=== PATIENT | female | born 1975 | race Caucasian/White ===

== ENCOUNTER 2021-05-19 15:29 | Emergency (ER) | payer MEDICAID, SELFPAY ==
[2021-05-19 15:37] VITALS: BP 174/89; PULSE 75; RESP 18; TEMP 36.6; O2SAT 100; BMI 36.1
--- NOTE | 2021-05-19 16:12 | XRR_ITS ---
PROCEDURE INFORMATION: Exam: XR Chest Exam date and time: 05/19/2021 4:12 PM Age: 46 years old Clinical indication: Angina pectoris; Patient HX: Chest pain starting last night TECHNIQUE: Imaging protocol: XR of the chest. Views: 1 view. COMPARISON: No relevant prior studies available. FINDINGS: Lungs: Unremarkable. No consolidation. Pleural spaces: Unremarkable. No pleural effusion. No pneumothorax. Heart/Mediastinum: Unremarkable. No cardiomegaly. Bones/joints: Unremarkable. XR/XR chest 1V portable [id number] IMPRESSION: No acute findings.
--- NOTE | 2021-05-19 16:12 | ECG_ITS ---
[facility] Test Date: 2021-05-19 Pat Name: Viri Yousif Department: Room: Gender: Female Vacation Planner: : 1975 Requested By: Collette Gomez Order Number: [id number] John MD: Torey Gatica M.D. Measurements Intervals [place] Rate: 77 P: 46 SD: 171 QRS: 62 QRSD: 93 T: 46 QT: 378 QTc: 429 Interpretive Statements SINUS RHYTHM POSSIBLE ANTERIOR MYOCARDIAL INFARCTION , OF INDETERMINATE AGE [30 ms Q WAVE IN V3/V4, OR R < 0.2 mV IN V4] No previous ECG available for comparison Electronically Signed On 05-19-2021 18:06:34 SURFACE ROOM [employer]ICIAN by Torey Gatica M.D. [id number]
== END 2021-05-19 17:09 | disposition left against medical advice (07) ==
PROVIDERS: Emergency Provider Family Medicine
DX: Z53.21 Procedure and treatment not carried out due to patient leaving prior to being seen by health care provider (principal)
CPT/HCPCS: 71045; 93005

== ENCOUNTER 2023-08-17 19:25 | Emergency (ER) | payer MEDICAID, SELFPAY ==
[2023-08-17] VITALS (8 sets, daily range): BP systolic 149–169; BP diastolic 77–102; PULSE 71–93; RESP 14–25; TEMP 36.7; O2SAT 94–100; BMI 41.0
--- NOTE | 2023-08-17 19:39 | XRR_ITS ---
PROCEDURE INFORMATION: Exam: XR Chest Exam date and time: 08/17/2023 7:57 PM Age: 48 years old Clinical indication: Cough and dyspnea; Additional info: Dyspnea/cough TECHNIQUE: Imaging protocol: Radiologic exam of the chest. Views: 1 view. COMPARISON: CR XR chest 1V portable [id number] 05/19/2021 4:18 PM FINDINGS: Lungs: Incidental note made of azygous lobe. The lungs are clear. No pulmonary consolidation. Pleural spaces: No pleural effusion or pneumothorax. Heart/Mediastinum: Heart size is within normal limits. Stable hyperdensity projecting over the right mid heart may represent a septal occlusion device, stable. Bones/joints: No acute osseous abnormalities are seen. XR/XR chest 1V portable [id number] IMPRESSION: No acute cardiopulmonary disease.
--- NOTE | 2023-08-17 19:56 | ECG_ITS ---
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 Measurements Intervals [place] Rate: 79 P: 24 [place]: 166 QRS: 53 QRSD: 82 T: 55 QT: 367 QTc: 421 Interpretive Statements SINUS RHYTHM Compared to ECG 05/19/2021 15:47:19 Myocardial infarct finding no longer present Electronically Signed On 08-18-2023 16:25:46 CDT by Torey Gatica M.D. [id number]
--- NOTE | 2023-08-17 19:58 | ED_ITS ---
HPI - General Adult 2 General: Chief complaint: General Medical Stated complaint: High BP, Feet swelling,SOB Time Seen by Provider: 08/17/23 19:38 Source: patient Mode of arrival: ambulatory History of Present Illness: 48-year-old female comes in complaining of swelling in her feet and some shortness of breath this been going on for some time they have made some medication adjustments recently. Blood pressure despite this is continue to run a little bit high she has several blood pressure readings from at home 160s even some in the 170s. Prior to adding the metoprolol she had some blood pressures in the 190s. She denies any chest pain at this time states she had some twinges of chest discomfort earlier. She has some EKGs from her doctor's office and a that showed early repull in V12 and 3. EKG done in the ER at this time has no significant acute changes no ST elevation. No PND but does feel shortness of breath with exertion no associated chest pain with exertion. Onset (ago): day(s) Associated symptoms: Reports dyspnea, malaise and short of breath; Deny chest pain, confusion, cough, diaphoresis, decreased appetite, fevers/chills, headache(s), nausea, rash, palpitations, seizures, syncope, vomiting or weakness Review of Systems 2 Const: Reports: malaise; Denies: fever(s), chills or diaphoresis Card: Reports: edema and swelling of feet/ankles; Denies: chest pain, palpitations or syncope Resp: Reports: dyspnea; Denies: productive cough, non-productive cough, wheezing or chest congestion GI: Denies: abdominal pain, nausea or vomiting : Denies: dysuria, urinary frequency or urinary urgency Musc: Denies: neck pain or back pain Skin/Breast: Denies: rash Neuro: Denies: headache(s) or confusion [facility] ED 2 Female Reproductive History: Date of last menstrual period: 08/13/23 Physical Exam 2 Const: GENERAL APPEARANCE: cooperative and comfortable O RIENTATION/CONSCIOUSNESS: Yes awake, Yes oriented to person, Yes oriented to place and Yes oriented to time HENMT: COMMON NORMALS: normocephalic, atraumatic and hearing grossly normal bilaterally HEAD & SCALP: normocephalic and atraumatic Resp: COMMON NORMALS: normal respiratory effort, No retractions, No use of accessory muscles and clear to auscultation bilaterally AUSCULTATION: clear to auscultation bilaterally Cardio: COMMON NORMALS: regular rate, regular rhythm and No murmurs present (Cardio) RATE: regular rate RHYTHM: regular rhythm GI: COMMON NORMALS: Soft to palpation and No hepatosplenomegaly present A USCULTATION: Yes normoactive bowel sounds PALPATION: Yes Soft to palpation, No Tenderness to palpation present (GI), No Guarding due to palpation present (GI) and Yes No hepatosplenomegaly present Extremity: COMMON NORMALS: normal to inspection, capillary refill normal and no calf tenderness GENERAL: Yes edema (Trace lower extremity) Neuro: SENSORIUM/ORIENTATION: Yes oriented to person, Yes oriented to place and Yes oriented to time Skin: COMMON NORMALS: no rashes or lesions noted GENERAL SKIN EXAM: no rashes or lesions noted Course 2 Vital Signs: Vital signs: Vital Signs Temperature 98.0 F 08/17/23 19:38 Pulse Rate 75 08/17/23 21:00 Respiratory Rate 17 08/17/23 21:00 Blood Pressure 164/88 08/17/23 21:00 Pulse Oximetry 99 08/17/23 21:00 Oxygen Delivery Me thod Room Air 08/17/23 19:38 MDM - General Adult Medical Decision Making And imaging reviewed no acute coronary syndrome. EKGs done at the office show it looks like repull did not show any acute coronary changes at this time no ST segment elevation cardiac enzymes trending normal at 6. Blood pressure is elevated but not significantly so. Recommend adding hydrochlorothiazide 25 mg daily and follow-up with her primary care doctor within 7 to 10 days to reevaluate blood pressure control. Medical Records I reviewed the patient's medical records. Lab Data I reviewed the patient's lab results. 08/17/23 19:53 08/17/23 19:53 Radiology Impressions Chest X-Ray 08/17/23 19:39 IMPRESSION: No acute cardiopulmonary disease. Laboratory Results WBC 5.92 10^3/uL (3.29-11.43) 08/17/23 19:53 RBC 4.71 10^6/uL (3.85-5.65) 08/17/23 19:53 Hgb 13.00 g/dL (11.27-16.99) 08/17/23 19:53 Hct 40.2 % (36-47) 08/17/23 19:53 MCV 85.4 fl (85-98) 08/17/23 19:53 MCH 27.6 pg (27-33) 08/17/23 19:53 MCHC 32.3 g/dL (30-55) 08/17/23 19:53 RDW 14.4 % (12.1-15.1) 08/17/23 19:53 Plt Count 176 10^3/cmm (157-399) 08/17/23 19:53 MPV 11.4 fL (7.4-10.4) H 08/17/23 19:53 Neut % (Auto) 59.3 % 08/17/23 19:53 Lymph % (Auto) 27.5 % 08/17/23 19:53 [place] % (Auto) 7.1 % 08/17/23 19:53 Eos % (Auto) 5.2 % 08/17/23 19:53 Baso % (Auto) 0.7 % 08/17/23 19:53 Neut # (Auto) 3.51 10^3/uL (1.8-7.7) 08/17/23 19:53 Lymph # (Auto) 1.6 10^3/uL (0.8-4.8) 08/17/23 19:53 [place] # (Auto) 0.4 10^3/uL (0.2-0.9) 08/17/23 19:53 Eos # (Auto) 0.3 10^3/uL (0.0-0.8) 08/17/23 19:53 Baso # (Auto) 0.0 10^3/uL (0.0-0.1) 08/17/23 19:53 Nucleated RBC % (auto) 0 % 08/17/23 19:53 Nucleated RBCs # 0.0 /100WBC 08/17/23 19:53 Sodium 141 mmol/L (136-145) 08/17/23 19:53 Potassium 4.1 mmol/L (3.5-5.1) 08/17/23 19:53 Chloride 109 mmol/L (98-107) H 08/17/23 19:53 Carbon Dioxide 23 mmol/L (22-29) 08/17/23 19:53 Anion Gap 13.1 (5-19) 08/17/23 19:53 BUN 8 mg/dL (6-20) 08/17/23 19:53 Creatinine 0.7 mg/dL (0.5-0.9) 08/17/23 19:53 GFR Calculation 89.7 mL/min (90-130) L 08/17/23 19:53 Glucose 94 mg/dL (65-115) 08/17/23 19:53 Calculated Osmolality 290 mOsm/kg (285-295) 08/17/23 19:53 Calcium 8.3 mg/dL (8.5-10.5) L 08/17/23 19:53 Total Bilirubin 0.3 mg/dL (0.15-1.2) 08/17/23 19:53 AST 17 U/L (0-32) 08/17/23 19:53 ALT 12 U/L (0-33) 08/17/23 19:53 Alkaline Phosphatase 65 U/L (35-105) 08/17/23 19:53 Troponin T Baseline < 6 ng/L (0-10) 08/17/23 19:53 Troponin T 120 Minute 6.00 ng/L (0-10) 08/17/23 21:57 Delta Troponin T 0.24007 ABS# (0-10) 08/17/23 21:57 Total Protein 7.1 g/dL (6.6-8.7) 08/17/23 19:53 Albumin 4.2 g/dL (3.5-5.2) 08/17/23 19:53 Globulin 2.9 g/dL (1.3-4.6) 08/17/23 19:53 All radiology interpretation(s) finalized by discharge Discharge Plan Discharge Patient Disposition: Home Clinical Impression: HTN (hypertension) Condition: Stable Prescriptions: New hydrochlorothiazide 25 mg tablet 25 mg PO DAILY Qty: 30 0RF Discharge Orders: Discharge ED (Routine); Ordered 08/17/23 Ordered By: Mejia Jc Referrals: Gumaro Russo MD [Primary Care Provider] - Discharge Diet: Usual diet Discharge Activity: Increase activity as tolerated Patient Instructions: Hypertension (ED), Opioid Safety, Pain Management Activity Restrictions/Additional Instructions: Thank you for choosing [facility] for your healthcare needs today. Please realize this is an emergency room and that we are providing you with a medical screening exam and this may not be complete and all inclusive of all the testing and or work up that you may need to determine your ailment or severity of your illness. It is very important that you follow up as instructed or that you return to the Emergency Department should you have concerns or if your condition changes or worsens in any way. You are seen today for elevated blood pressure. Recommend that you add hydrochlorothiazide 1 tablet daily to your blood pressure regimen and recheck your blood pressure with your primary care doctor within the next week. Your EKGs and cardiac enzymes did not show any sign of acute coronary syndrome at this time. Coding Level of Care Code ED Dish Carrier for Stephanie Salinas
[2023-08-17 20:31] LABS: Basophils % 0.7 %; Eosinophils # 0.3 10^3/uL (0.0-0.8); Eosinophils % 5.2 %; Hematocrit 40.2 % (36-47); Lymphocytes # 1.6 10^3/uL (0.8-4.8); Lymphocytes % 27.5 %; Mean Corpuscular HGB Conc 32.3 g/dL (30-55); Mean Corpuscular Hemoglobin 27.6 pg (27-33); Mean Corpuscular Volume 85.4 fl (85-98); Mean Platelet Volume 11.4 fL (7.4-10.4); Monocytes # 0.4 10^3/uL (0.2-0.9); Monocytes % 7.1 %; Neutrophils # 3.51 10^3/uL (1.8-7.7); Neutrophils % 59.3 %; Nucleated Red Blood Cells % 0 %; Platelet Count 176 10^3/cmm (157-399); Red Blood Count 4.71 10^6/uL (3.85-5.65); Red Cell Distribution Width 14.4 % (12.1-15.1); White Blood Count 5.92 10^3/uL (3.29-11.43)
[2023-08-17 20:47] LABS: Alanine Aminotransferase 12 U/L (0-33); Albumin Level 4.2 g/dL (3.5-5.2); Alkaline Phosphatase 65 U/L (35-105); Aspartate Amino Transferase 17 U/L (0-32); Blood Urea Nitrogen 8 mg/dL (6-20); Calcium 8.3 mg/dL (8.5-10.5); Carbon Dioxide 23 mmol/L (22-29); Chloride 109 mmol/L (98-107); Creatinine Clr Calc Pharmacy 136.9698; Globulin 2.9 g/dL (1.3-4.6); Glomerular Filtration Rate 89.7 mL/min (90-130); Glucose 94 mg/dL (65-115); Osmolality Calculated 290 mOsm/kg (285-295); Sodium 141 mmol/L (136-145); Total Bilirubin 0.3 mg/dL (0.15-1.2); Total Protein 7.1 g/dL (6.6-8.7)
[2023-08-17 20:52] LABS: Anion Gap 13.1 (5-19); Potassium 4.1 mmol/L (3.5-5.1)
[2023-08-17 21:40] LABS: Troponin(5th) Baseline < 6 ng/L (0-10)
--- NOTE | 2023-08-17 21:52 | ECG_ITS ---
[facility] Test Date: 2023-08-17 Pat Name: Viri Yousif Department: Room: Gender: Female Cash Applications Associate: : 1975 Requested By: Mejia cMkeon Order Number: [id number] John MD: Torey Gatica M.D. Measurements Intervals [place] Rate: 76 P: 32 NE: 182 QRS: 30 QRSD: 96 T: 44 QT: 390 QTc: 439 Interpretive Statements SINUS RHYTHM WITH SINUS ARRHYTHMIA Compared to ECG 08/17/2023 19:56:11 No significant changes Electronically Signed On 08-18-2023 16:25:18 CDT by Torey Gatica M.D. [id number]
[2023-08-17 22:21] LABS: Troponin 5 2HR Delta 0.00001 ABS# (0-10)
== END 2023-08-17 22:55 | disposition home or self-care (01) ==
PROVIDERS: Emergency Provider Family Medicine; PCP Family Medicine
DX: I10 Essential (primary) hypertension (principal)
CPT/HCPCS: 36415; 71045; 80053; 84484; 85025; 93005; 99285

== ENCOUNTER 2024-01-02 23:37 | Emergency (ER) | payer MEDICAID, SELFPAY ==
[2024-01-02 23:49] VITALS: BP 183/111; PULSE 75; RESP 18; TEMP 36.4; O2SAT 99; BMI 41.9
--- NOTE | 2024-01-02 23:58 | ED_ITS ---
Documented by User: PABLO Sim 01/06/24 13:40 HPI - General Adult 2 General: Chief complaint: Vaginal Bleeding Stated complaint: currently treated anemia, v/ heavy bleeding dizzy Time Seen by Provider: 01/02/24 23:51 History of Present Illness: 48-year-old female comes in today for co mplaints of lightheadedness and dizziness secondary to heavy vaginal bleeding. Patient reports that she has recently started treatment for anemia because her hemoglobin was 11.3. Patient does have a history of gastric sleeve surgery, which makes her malnourished already. Patient was placed on some iron and vitamin C to help with the anemia recently. Patient reports she started her period 3 days ago but has been heavier than she usually has noted and is concerned that it may be causing her to become more anemic and causing more lightheadedness and dizziness. Patient's other medical history includes migraine headaches, hypertension, prior CVA. Patient's had a appendectomy, gallbladder removal, tubal ligation, , and gastric sleeve. Patient appears nontoxic. Patient appears in mild to moderate pain due to headache. 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 Associated symptoms: Reports headache(s) Related Data Previous Rx's Medication Instructions Recorded hydrochlorothiazide 25 mg tablet 25 mg PO DAILY #30 tabs 08/17/23 Allergies Allergy/AdvReac Type Severity Reaction Status Date / Time diazepam [From Valium] Allergy Unknown Verified 08/17/23 19:47 Review of Systems 2 General: Reports: 10 or more systems reviewed and unremarkable except in HPI and below : Reports: vaginal bleeding Neuro: Reports: headache(s) and dizziness [facility] ED 2 Female Reproductive History: Date of last menstrual period: 12/30/23 Physical Exam 2 Const: COMMON NORMALS: alert HENMT: COMMON NORMALS: normocephalic HEAD & SCALP: normocephalic Neck/C-Spine: COMMON NORMALS: full ROM Resp: COMMON NORMALS: normal respiratory effort and clear to auscultation bilaterally AUSCULTATION: clear to auscultation bilaterally Cardio: COMMON NORMALS: regular rate RATE: regular rate GI: COMMON NORMALS: Soft to palpation PALPATION: Yes Soft to palpation Extremity: COMMON NORMALS: normal to inspection Neuro: SENSORIUM/ORIENTATION: Yes alert Skin: COMMON NORMALS: turgor normal GENERAL SKIN EXAM: turgor normal Course 2 Vital Signs: Vital signs: Vital Signs Temperature 97.6 F 01/02/24 23:49 Pulse Rate 74 01/03/24 02:43 Respiratory Rate 16 01/03/24 02:41 Blood Pressure 135/70 01/03/24 02:43 Pulse Oximetry 100 01/03/24 02:43 Oxygen Delivery Me thod Room Air 01/03/24 02:41 MDM - General Adult Medical Decision Making 48-year-old female comes in today for complaints of lightheadedness and dizziness. Patient also has a headache. Patient reports some heavier than normal bleeding secondary to her menstrual cycle. Patient believes that they are heavy menstrual cycle has made her anemia worse which prompted her to come to the ER. Patient appears nontoxic. No focal neurodeficits are noted. Skin is warm and dry. Vital signs normal except for blood pressure of 183/111. Differential diagnosis includes not limited to abnormal uterine bleeding, anemia, migraine headache, dehydration. 1220, patient's hemoglobin came back 12.7. Patient was ordered Reglan, diphenhydramine, and hydralazine for a headache and high blood pressure. We are awaiting CMP, and urinalysis, and hCG. I reviewed patient with Dr. Maya who will assume care of patient at the end of my shift. Lab Data 01/02/24 23:58 01/02/24 23:58 Laboratory Results WBC 6.77 10^3/uL (3.29-11.43) 01/02/24 23:58 RBC 4.61 10^6/uL (3.85-5.65) 01/02/24 23:58 Hgb 12.70 g/dL (11.27-16.99) 01/02/24 23:58 Hct 39.3 % (36-47) 01/02/24 23:58 MCV 85.2 fl (85-98) 01/02/24 23:58 MCH 27.5 pg (27-33) 01/02/24 23:58 MCHC 32.3 g/dL (30-55) 01/02/24 23:58 RDW 15.7 % (12.1-15.1) H 01/02/24 23:58 Plt Count 214 10^3/cmm (157-399) 01/02/24 23:58 MPV 10.4 fL (7.4-10.4) 01/02/24 23:58 Neut % (Auto) 58.0 % 01/02/24 23:58 Lymph % (Auto) 28.1 % 01/02/24 23:58 [place] % (Auto) 7.4 % 01/02/24 23:58 Eos % (Auto) 5.5 % 01/02/24 23:58 Baso % (Auto) 0.7 % 01/02/24 23:58 Neut # (Auto) 3.93 10^3/uL (1.8-7.7) 01/02/24 23:58 Lymph # (Auto) 1.9 10^3/uL (0.8-4.8) 01/02/24 23:58 [place] # (Auto) 0.5 10^3/uL (0.2-0.9) 01/02/24 23:58 Eos # (Auto) 0.4 10^3/uL (0.0-0.8) 01/02/24 23:58 Baso # (Auto) 0.1 10^3/uL (0.0-0.1) 01/02/24 23:58 Nucleated RBC % (auto) 0 % 01/02/24 23:58 Nucleated RBCs # 0.0 /100WBC 01/02/24 23:58 Sodium 136 mmol/L (136-145) 01/02/24 23:58 Potassium 3.9 mmol/L (3.5-5.1) 01/02/24 23:58 Chloride 108 mmol/L (98-107) H 01/02/24 23:58 Carbon Dioxide 20 mmol/L (22-29) L 01/02/24 23:58 Anion Gap 11.9 (5-19) 01/02/24 23:58 BUN 14 mg/dL (6-20) 01/02/24 23:58 Creatinine 0.7 mg/dL (0.5-0.9) 01/02/24 23:58 GFR Calculation 89.7 mL/min (90-130) L 01/02/24 23:58 Glucose 113 mg/dL (65-115) 01/02/24 23:58 Calculated Osmolality 283 mOsm/kg (285-295) L 01/02/24 23:58 Calcium 8.6 mg/dL (8.5-10.5) 01/02/24 23:58 Total Bilirubin 0.2 mg/dL (0.15-1.2) 01/02/24 23:58 AST 20 U/L (0-32) 01/02/24 23:58 ALT 17 U/L (0-33) 01/02/24 23:58 Alkaline Phosphatase 77 U/L (35-105) 01/02/24 23:58 Total Protein 7.0 g/dL (6.6-8.7) 01/02/24 23:58 Albumin 4.1 g/dL (3.5-5.2) 01/02/24 23:58 Globulin 2.9 g/dL (1.3-4.6) 01/02/24 23:58 HCG, Qual Negative (Negative) 01/02/24 23:58 Urine Color Yellow (Yellow) 01/03/24 00:30 Urine Appearance Clear (CLEAR) 01/03/24 00:30 Urine pH 6.0 (5-7) 01/03/24 00:30 Ur Specific [place] 1.020 (1.005-1.030) 01/03/24 00:30 Urine Protein Negative (Negative) 01/03/24 00:30 Urine Glucose (UA) Negative (Normal) 01/03/24 00:30 Urine Ketones Negative (Negative) 01/03/24 00:30 Urine Blood 3+ (Negative) A 01/03/24 00:30 Urine Nitrate Negative (Negative) 01/03/24 00:30 Urine Bilirubin Negative (Negative) 01/03/24 00:30 Urine Urobilinogen 1.0 mg/dL (Negative) 01/03/24 00:30 Ur Leukocyte Esterase Negative (Negative) 01/03/24 00:30 Urine RBC 3-5 /hpf (0-2) 01/03/24 00:30 Urine WBC 0-5 /hpf (0-5) 01/03/24 00:30 Ur Squamous Epith Cells 0-5 /hpf (0-5) 01/03/24 00:30 Calcium Oxalate Crystal 5-10 /hpf H 01/03/24 00:30 Amorphous Sediment Not Reportable 01/03/24 00:30 Urine Bacteria None seen /hpf (NONE) 01/03/24 00:30 Hyaline Casts 0-4 /lpf H 01/03/24 00:30 Urine Mucus Trace /hpf 01/03/24 00:30 Discharge Plan Discharge Patient Disposition: Home Clinical Impression: Dysfunctional uterine bleeding Headache Qualifiers: Headache type: unspecified Headache chronicity pattern: acute headache I ntractability: not intractable Qualified Code(s): R51.9 - Headache, unspecified Hypertension Qualifiers: Hypertension type: unspecified Qualified Code(s): I10 - Essential (primary) hypertension Condition: Stable Prescriptions: No Action hydrochlorothiazide 25 mg tablet 25 mg PO DAILY Qty: 30 0RF Discharge Orders: Discharge ED (Routine); Ordered 01/03/24 Ordered By: Deshawn Maya Referrals: Gumaro Russo MD [Primary Care Provider] - Discharge Diet: Usual diet Discharge Activity: Increase activity as tolerated Patient Instructions: Abnormal (Dysfunctional) Uterine Bleeding (ED) Activity Restrictions/Additional Instructions: Follow-up with primary care or [facility] in 2 to 3 days for recheck of hemoglobin. Continue with routine medications as directed. Return to ER for worsening symptoms such as feeling of passing out, fever greater than 100.5, inability to hold fluids down. Coding Level of Care Code ED Tool Storage Attendant for Chg Fwd Documented by User: Deshawn Maya DO 01/03/24 05:58 HPI - General Adult 2 General: Chief complaint: Vaginal Bleeding Stated complaint: currently treated anemia, v/ heavy bleeding dizzy Time Seen by Provider: 01/02/24 23:51 Related Data Previous Rx's Medication Instructions Recorded hydrochlorothiazide 25 mg tablet 25 mg PO DAILY #30 tabs 08/17/23 Allergies Allergy/AdvReac Type Severity Reaction Status Date / Time diazepam [From Valium] Allergy Unknown Verified 08/17/23 19:47 Course 2 Vital Signs: Vital signs: Vital Signs Temperature 97.6 F 01/02/24 23:49 Pulse Rate 74 01/03/24 02:43 Respiratory Rate 16 01/03/24 02:41 Blood Pressure 135/70 01/03/24 02:43 Pulse Oximetry 100 01/03/24 02:43 Oxygen Delivery Me thod Room Air 01/03/24 02:41 MDM - General Adult Medical Decision Making 48-year-old female comes in today for complaints of lightheadedness and dizziness. Patient also has a headache. Patient reports some heavier than normal bleeding secondary to her menstrual cycle. Patient believes that they are heavy menstrual cycle has made her anemia worse which prompted her to come to the ER. Patient appears nontoxic. No focal neurodeficits are noted. Skin is warm and dry. Vital signs normal except for blood pressure of 183/111. Differential diagnosis includes not limited to abnormal uterine bleeding, anemia, migraine headache, dehydration. 1220, patient's hemoglobin came back 12.7. Patient was ordered Reglan, diphenhydramine, and hydralazine for a headache and high blood pressure. We are awaiting CMP, and urinalysis, and hCG. I reviewed patient with Dr. Maya who will assume care of patient at the end of my shift. This patient was originally seen by PABLO Dimas.? I agree with his history, evaluation, and treatment. Headache is improved. She wishes to go home. She will be allowed discharged/ Lab Data 01/02/24 23:58 01/02/24 23:58 Laboratory Results WBC 6.77 10^3/uL (3.29-11.43) 01/02/24 23:58 RBC 4.61 10^6/uL (3.85-5.65) 01/02/24 23:58 Hgb 12.70 g/dL (11.27-16.99) 01/02/24 23:58 Hct 39.3 % (36-47) 01/02/24 23:58 MCV 85.2 fl (85-98) 01/02/24 23:58 MCH 27.5 pg (27-33) 01/02/24 23:58 MCHC 32.3 g/dL (30-55) 01/02/24 23:58 RDW 15.7 % (12.1-15.1) H 01/02/24 23:58 Plt Count 214 10^3/cmm (157-399) 01/02/24 23:58 MPV 10.4 fL (7.4-10.4) 01/02/24 23:58 Neut % (Auto) 58.0 % 01/02/24 23:58 Lymph % (Auto) 28.1 % 01/02/24 23:58 [place] % (Auto) 7.4 % 01/02/24 23:58 Eos % (Auto) 5.5 % 01/02/24 23:58 Baso % (Auto) 0.7 % 01/02/24 23:58 Neut # (Auto) 3.93 10^3/uL (1.8-7.7) 01/02/24 23:58 Lymph # (Auto) 1.9 10^3/uL (0.8-4.8) 01/02/24 23:58 [place] # (Auto) 0.5 10^3/uL (0.2-0.9) 01/02/24 23:58 Eos # (Auto) 0.4 10^3/uL (0.0-0.8) 01/02/24 23:58 Baso # (Auto) 0.1 10^3/uL (0.0-0.1) 01/02/24 23:58 Nucleated RBC % (auto) 0 % 01/02/24 23:58 Nucleated RBCs # 0.0 /100WBC 01/02/24 23:58 Sodium 136 mmol/L (136-145) 01/02/24 23:58 Potassium 3.9 mmol/L (3.5-5.1) 01/02/24 23:58 Chloride 108 mmol/L (98-107) H 01/02/24 23:58 Carbon Dioxide 20 mmol/L (22-29) L 01/02/24 23:58 Anion Gap 11.9 (5-19) 01/02/24 23:58 BUN 14 mg/dL (6-20) 01/02/24 23:58 Creatinine 0.7 mg/dL (0.5-0.9) 01/02/24 23:58 GFR Calculation 89.7 mL/min (90-130) L 01/02/24 23:58 Glucose 113 mg/dL (65-115) 01/02/24 23:58 Calculated Osmolality 283 mOsm/kg (285-295) L 01/02/24 23:58 Calcium 8.6 mg/dL (8.5-10.5) 01/02/24 23:58 Total Bilirubin 0.2 mg/dL (0.15-1.2) 01/02/24 23:58 AST 20 U/L (0-32) 01/02/24 23:58 ALT 17 U/L (0-33) 01/02/24 23:58 Alkaline Phosphatase 77 U/L (35-105) 01/02/24 23:58 Total Protein 7.0 g/dL (6.6-8.7) 01/02/24 23:58 Albumin 4.1 g/dL (3.5-5.2) 01/02/24 23:58 Globulin 2.9 g/dL (1.3-4.6) 01/02/24 23:58 HCG, Qual Negative (Negative) 01/02/24 23:58 Urine Color Yellow (Yellow) 01/03/24 00:30 Urine Appearance Clear (CLEAR) 01/03/24 00:30 Urine pH 6.0 (5-7) 01/03/24 00:30 Ur Specific [place] 1.020 (1.005-1.030) 01/03/24 00:30 Urine Protein Negative (Negative) 01/03/24 00:30 Urine Glucose (UA) Negative (Normal) 01/03/24 00:30 Urine Ketones Negative (Negative) 01/03/24 00:30 Urine Blood 3+ (Negative) A 01/03/24 00:30 Urine Nitrate Negative (Negative) 01/03/24 00:30 Urine Bilirubin Negative (Negative) 01/03/24 00:30 Urine Urobilinogen 1.0 mg/dL (Negative) 01/03/24 00:30 Ur Leukocyte Esterase Negative (Negative) 01/03/24 00:30 Urine RBC 3-5 /hpf (0-2) 01/03/24 00:30 Urine WBC 0-5 /hpf (0-5) 01/03/24 00:30 Ur Squamous Epith Cells 0-5 /hpf (0-5) 01/03/24 00:30 Calcium Oxalate Crystal 5-10 /hpf H 01/03/24 00:30 Amorphous Sediment Not Reportable 01/03/24 00:30 Urine Bacteria None seen /hpf (NONE) 01/03/24 00:30 Hyaline Casts 0-4 /lpf H 01/03/24 00:30 Urine Mucus Trace /hpf 01/03/24 00:30 All radiology interpretation(s) finalized by discharge Discharge Plan Discharge Patient Disposition: Home Clinical Impression: Dysfunctional uterine bleeding Headache Qualifiers: Headache type: unspecified Headache chronicity pattern: acute headache I ntractability: not intractable Qualified Code(s): R51.9 - Headache, unspecified Hypertension Qualifiers: Hypertension type: unspecified Qualified Code(s): I10 - Essential (primary) hypertension Condition: Stable Prescriptions: No Action hydrochlorothiazide 25 mg tablet 25 mg PO DAILY Qty: 30 0RF Discharge Orders: Discharge ED (Routine); Ordered 01/03/24 Ordered By: Deshawn Maya Referrals: Gumaro Russo MD [Primary Care Provider] - Discharge Diet: Usual diet Discharge Activity: Increase activity as tolerated Patient Instructions: Abnormal (Dysfunctional) Uterine Bleeding (ED) Activity Restrictions/Additional Instructions: Follow-up with primary care or [facility] in 2 to 3 days for recheck of hemoglobin. Continue with routine medications as directed. Return to ER for worsening symptoms such as feeling of passing out, fever greater than 100.5, inability to hold fluids down. Coding Level of Care Code ED Tool Storage Attendant for Stephanie Salinas
[2024-01-03 00:05] LABS: Basophils # 0.1 10^3/uL (0.0-0.1); Basophils % 0.7 %; Eosinophils # 0.4 10^3/uL (0.0-0.8); Eosinophils % 5.5 %; Hematocrit 39.3 % (36-47); Lymphocytes # 1.9 10^3/uL (0.8-4.8); Lymphocytes % 28.1 %; Mean Corpuscular HGB Conc 32.3 g/dL (30-55); Mean Corpuscular Hemoglobin 27.5 pg (27-33); Mean Corpuscular Volume 85.2 fl (85-98); Mean Platelet Volume 10.4 fL (7.4-10.4); Monocytes # 0.5 10^3/uL (0.2-0.9); Monocytes % 7.4 %; Neutrophils # 3.93 10^3/uL (1.8-7.7); Nucleated Red Blood Cells % 0 %; Platelet Count 214 10^3/cmm (157-399); Red Blood Count 4.61 10^6/uL (3.85-5.65); Red Cell Distribution Width 15.7 % (12.1-15.1); White Blood Count 6.77 10^3/uL (3.29-11.43)
[2024-01-03 00:26] LABS: HCG, Serum Qual Negative (Negative)
[2024-01-03 00:30] LABS: Alanine Aminotransferase 17 U/L (0-33); Albumin Level 4.1 g/dL (3.5-5.2); Alkaline Phosphatase 77 U/L (35-105); Anion Gap 11.9 (5-19); Aspartate Amino Transferase 20 U/L (0-32); Blood Urea Nitrogen 14 mg/dL (6-20); Calcium 8.6 mg/dL (8.5-10.5); Carbon Dioxide 20 mmol/L (22-29); Chloride 108 mmol/L (98-107); Creatinine Clr Calc Pharmacy 129.7951; Globulin 2.9 g/dL (1.3-4.6); Glomerular Filtration Rate 89.7 mL/min (90-130); Glucose 113 mg/dL (65-115); Osmolality Calculated 283 mOsm/kg (285-295); Potassium 3.9 mmol/L (3.5-5.1); Sodium 136 mmol/L (136-145); Total Bilirubin 0.2 mg/dL (0.15-1.2)
[2024-01-03] MEDS: metoclopramide 5 mg/mL SDV 2 mL 10 MG IVP (00:38)
[2024-01-03] MEDS: hyDRALAzine 20 mg/mL INJ 1 mL 10 MG IVP (00:38)
[2024-01-03] MEDS: diphenhydrAMINE 50 mg/mL SDV 1mL 12.5 MG IVP (00:38)
[2024-01-03 00:39] LABS: Bilirubin Urine Negative (Negative); Blood Urine 3+ (Negative); Glucose Urine UA Negative (Normal); Ketones Urine Negative (Negative); Leukocyte Esterase Urine Negative (Negative); Nitrate Urine Negative (Negative); Protein Urine Negative (Negative); Urine Appearance Clear (CLEAR); Urine Color Yellow (Yellow)
[2024-01-03 00:45] LABS: Add Urine Microscopic? YES; Bacteria Urine None Seen /hpf; Hyaline Casts Urine 0-4 /lpf; Squamous Epithelial Cell Urine 0-5 /hpf (0-5); Universal Test for UA Present (0); WBC Urine 0-5 /hpf (0-5)
[2024-01-03 00:52] LABS: Mucus Urine TRACE /hpf
[2024-01-03] MEDS: ketorolac 30 mg/mL INJ IVP (02:29)
[2024-01-03 02:41] VITALS: PULSE 70; RESP 16; O2SAT 99
[2024-01-03 02:43] VITALS: BP 135/70; PULSE 74; O2SAT 100
== END 2024-01-03 02:45 | disposition home or self-care (01) ==
PROVIDERS: Emergency Provider Nurse Practitioner Family; PCP Family Medicine
DX: N93.8 Other specified abnormal uterine and vaginal bleeding (principal); R51.9 Headache, unspecified; I10 Essential (primary) hypertension; Z86.73 Personal history of transient ischemic attack (TIA), and cerebral infarction without residual deficits; K91.1 Postgastric surgery syndromes; Z98.84 Bariatric surgery status; Z90.49 Acquired absence of other specified parts of digestive tract
CPT/HCPCS: 80053; 81001; 84703; 85025; 96374; 96375; 99284; J0360; J1200; J1885; J2765